=== PATIENT | female | born 1955 | race African-American/Black ===

== ENCOUNTER 2017-03-18 15:10 | Inpatient (IN) | payer MEDICARE, MEDICAID ==
[2017-03-18 16:21] LABS: Prothrombin Time 12.8 SEC (12.0-14.7)
[2017-03-18 16:23] LABS: Hemoglobin 13.9 g/dL (12.0-16.0); Mean Corpuscular HGB CONC 34.4 g/dL (32.0-36.0); Mean Corpuscular Hemoglobin 29.9 pg (27.0-31.0); Mean Platelet Volume 7.6 fL (7.4-10.4); PTT 18.7 SEC (22.9-36.1); Platelet Count 251 thou/uL (130-400); Red Blood Cell (RBC) Count 4.63 mill/uL (4.20-5.40); White Blood Cell (WBC) Count 22.7 thou/uL (4.8-10.8)
[2017-03-18 16:40] LABS: ALT (SGPT) 16 U/L (8-55); AST (SGOT) 11 U/L (5-34); Albumin 3.7 g/dL (3.4-4.8); Alkaline Phosphatase 97 U/L (40-150); Anion Gap 15 mmol/L (10-20); BUN (Urea Nitrogen) 28 mg/dL (9.8-20.1); Bilirubin, Total 0.4 mg/dL (0.2-1.2); CK (CPK) 92 U/L (29-168); Calc. Creatinine Clearance 0 mL/min (70-130); Calcium 9.6 mg/dL (7.8-10.44); Carbon Dioxide 22 mmol/L (23-31); Chloride 107 mmol/L (98-107); Estimated GFR-MDRD 31; Globulin 3.2 g/dL (2.4-3.5); Glucose 113 mg/dL (80-115); Lipase 26 U/L (8-78); Lymphocytes 48 % (21-51); MDiff Complete? YES; Monocytes 5 % (0-10); Neutrophil 45 % (42-75); PLT Morphology Comment Appears Adequate; Potassium 4.1 mmol/L (3.5-5.1); Protein, Total 6.9 g/dL (6.0-8.3); Reactive Lymphocytes 2 % (0-10); Sodium 140 mmol/L (136-145)
--- NOTE | 2017-03-18 16:42 | RAD ---
PORTABLE UPRIGHT FRONTAL CHEST RADIOGRAPH 03/18/17 COMPARISON: 05/15/16 HISTORY: High blood pressure. FINDINGS: There is mild increased density in the perihilar region suggesting volume loss or mild vascular promi nence. Shallow inspiration limits detailed assessment in these regions. There is no pneumothorax or p leural fluid and there is no focal consolidation or alveolar edema. IMPRESSION: No acute findings. POS: [facility]
[2017-03-18 16:43] LABS: Troponin I Less than 0.010 ng/mL (< 0.028)
--- NOTE | 2017-03-18 16:45 | CT ---
HEAD CT 03/18/17 COMPARISON: None. HISTORY: Sudden onset of left hand weakness, CVA symptoms, altered mental status, hypertension. TECHNIQUE: Serial axial CT imaging obtained at 5 mm intervals from vertex through skull base without contrast. FINDINGS: There is evidence of prior craniotomy near the vertex posteriorly on the right. The imaged paranasal sinuses and mastoid air cells are well aerated. There is no displaced calvarial fracture, intracranial hemorrhage, midline shift or mass effect. There is a focal area of periventricular and deep white matter hypodensity in the frontal region on t he right. The adjacent frontal horn of the right lateral ventricle is slightly enlarged suggesting pr ior ischemia and/or small vessel disease. If there is clinical concern for an acute infarction, brain MRI is advised. IMPRESSION: Area of hypodensity in the periventricular and deep white matter of the right frontal region as detai led above. No intracranial hemorrhage noted. POS: [facility]
[2017-03-18 18:33] LABS: Bilirubin Negative (Negative); Blood, Urine Negative (Negative); Clarity CLEAR (Clear); Glucose, Urine (Dipstick) Negative (Negative); Leukocyte Negative (Negative); Nitrite Negative (Negative); Protein, Urine (Dipstick) Negative (Neg-Trace); Specific Gravity, Urine 1.015 (1.002-1.036); Urobilinogen 0.2 mg/dL (0.2-1.0)
[2017-03-18] MEDS ORDERED: hydrALAZINE 20 MG/ML VIAL SLOW IVP PRN (19:35)
[2017-03-18] MEDS ORDERED: Labetalol HCl 100 MG/20 ML VIAL SLOW IVP PRN (19:35)
[2017-03-18] MEDS ORDERED: Senokot 8.6 MG TAB PO PRN (19:35)
[2017-03-18] MEDS ORDERED: Guaifenesin DM 100-10/5 ML UDCUP PO PRN (19:35)
[2017-03-18 20:58] VITALS: BMI 31.6
[2017-03-18 21:14] LABS: Band 4 % (5-11); Eosinophils 1 % (0-10); Lymphocytes 65 % (21-51); MDiff Complete? YES; Mean Corpuscular HGB CONC 33.9 g/dL (32.0-36.0); Mean Corpuscular Hemoglobin 29.4 pg (27.0-31.0); Mean Corpuscular Volume 86.8 fl (81.0-99.0); Mean Platelet Volume 7.4 fL (7.4-10.4); Monocytes 2 % (0-10); Neutrophil 28 % (42-75); PLT Morphology Comment Appears Adequate; Platelet Count 229 thou/uL (130-400); RBC Distribution Width 13.7 % (11.5-14.5); RBC Morphology Normal; White Blood Cell (WBC) Count 20.3 thou/uL (4.8-10.8)
[2017-03-18] MEDS: cloNIDine 0.1 MG TAB PO SCH (21:27)
[2017-03-18] MEDS: Carvedilol 25 MG TAB PO SCH (21:27)
[2017-03-18] MEDS: Sodium Chloride 0.9% 1,000 ML IV SCH (21:28)
[2017-03-18] MEDS: Atorvastatin Calcium 40 MG TAB PO SCH (21:28)
--- NOTE | 2017-03-18 23:05 | HP ---
REASON FOR ADMISSION: TIA, hypertensive urgency, chronic leukocytosis. HISTORY OF PRESENT ILLNESS: The patient gives history of watching TV at her home when she developed left upper extremity numbness. This progressed to her left lower extremity as well. Her boyfriend told her that her face was twisted to the left. She also had a headache at the same time. The patient managed to shuffle across to the restroom to see her face. Finally, they called EMS and patient was brought here. By the time EMS came to see her, all her facial symptoms have resolved. She has some dry cough and also increased frequency to a weak bladder which is chronic. She also mentions that her white count has been high from last 6 months and her primary care physician, Dr. Ike Bañuelos is aware. She has not seen an oncologist for the same, but she sees Dr. Bhardwaj at [facility] who is her oncologist for her breast cancer. No history of fever. No complaints of any ulcers. No flu-like illness. PAST MEDICAL AND SURGICAL HISTORY: Hypertension, history of right breast cancer for which she has had a lumpectomy and radiation, no chemotherapy was given. [facility] She had this 4 years back. She has had meningioma removed from her right side of her brain which is not malignant per patient. Hysterectomy, right kidney stent placed, history of chronic kidney disease, chronic leukocytosis from last 6 months, prior stress test done 1 year back at [facility] was negative. CURRENT MEDICATIONS: The patient is on clonidine, spironolactone, carvedilol. Please note patient does not recall all her medications. She takes a lot of medications and goes to [facility] pharmacy in [place]. We will try to obtain the same from her pharmacy. ALLERGIES: SULFA. She is intolerant to NAPROSYN and ULTRAM which causes her stomach upset. PERSONAL HISTORY: Does not abuse alcohol or drugs. No history of smoking. FAMILY HISTORY: The patient was adopted when she was very young. Her biological mom had history of kidney issues and had cervical cancer as well. She does not know anything about her biological father. The patient has 6 children, 5 girls and 1 boy and she also has 8 grandkids. Power of admitted attorneys is Mr. Danielson, that is her grandson. CODE STATUS: FULL. REVIEW OF SYSTEMS: The following complete review of systems was negative, unless otherwise mentioned in the HPI or below: Constitutional: Weight loss or gain, ability to conduct usual activities. Skin: Rash, itching. Eyes: Double vision, pain. ENT/Mouth: Nose bleeding, neck stiffness, pain, tenderness. Cardiovascular: Palpitations, dyspnea on exertion, orthopnea. Respiratory: Shortness of breath, wheezing, cough, hemoptysis, fever or night sweats. Gastrointestinal: Poor appetite, abdominal pain, heartburn, nausea, vomiting, constipation, or diarrhea. Genitourinary: Urgency, frequency, dysuria, nocturia. Musculoskeletal: Pain, swelling. Neurologic/Psychiatric: Anxiety, depression. Allergy/Immunologic: Skin rash, bleeding tendency. PHYSICAL EXAMINATION: GENERAL: The patient is a 62-year-old female who is currently not in any acute distress. VITAL SIGNS: Blood pressure 170/82. When EMS arrived, the patient had systolic blood pressures more than 210, pulse 74 per minute, respiratory rate 20 per minute, temperature 98.7 degrees Fahrenheit, saturating 96% on room air. NECK: Supple, no elevated JVD. HEENT: Extraocular muscles intact. Pupils reacting to light. Oral cavity mucous membranes are moist. No exudates or congestion. CARDIOVASCULAR: S1, S2 heard. Regular rhythm. RESPIRATORY: Air entry 1+ bilateral. No rales or rhonchi. ABDOMEN: Soft, bowel sounds heard. No tenderness, rigidity or guarding. EXTREMITIES: No peripheral edema or calf tenderness. VASCULAR SYSTEM: Peripheral pulses 1+ bilateral. No ischemic ulcerations or gangrene. CENTRAL NERVOUS SYSTEM: No gross focal deficits seen. Patient moves all 4 extremities. PSYCHIATRIC: The patient's mood is euthymic. No hallucinations or delusions. LABORATORY AND X-RAY FINDINGS: White count of 22, H&H 13 and 40, MCV is 87. Platelet count 251 with 45% neutrophils, has 2% reactive lymphocytes. PT/INR, PTT are 12, 1.0, and 18. Serum bicarbonate is 22, BUN 28, creatinine 1.9, serum glucose 113, calcium 9.6. Lactic acid is 2.0. Liver enzymes within normal limits. First set of cardiac enzymes are negative. BNP is 75, albumin is 3.7. Lipase is 26. UA is negative. Influenza A and B antigens are negative. Chest x-ray done shows no acute cardiopulmonary findings. CT brain done shows hypodensity in the periventricular and deep white matter of the right frontal region. There is no intracranial hemorrhage, prior craniotomy changes were seen. CLINICAL IMPRESSION AND PLAN: The patient will be admitted to Stroke Unit for transient ischemic attack with left-sided paraesthesias, which has completely resolved at present. The patient has leukocytosis with white count of nearly 22 ,000. Patient states she has had this from last 6 months or so and has not had any further workup on this. First, we will repeat a CBC and also ask for peripheral smear review by pathologist. We will obtain LDH, flow cytometry and gunderson cultures. Patient is currently not having any signs of infection and will not be given any antibiotics for the same. We will obtain MRI brain for better delineation of her brain structure with prior history of craniotomy for meningioma, echo with 2D Doppler for LV function due to hypertensive urgency on arrival. Most of her symptoms likely are due to hypertensive urgency with headache and left-sided tingling, numbness that has resolved now. She will be gently hydrated with normal saline at 80 mL per hour for a total of 1 liter. We will continue her on Coreg, Lipitor, aspirin, Norvasc for now. The patient goes to [facility] in [place] and will try to obtain accurate med list from there. The patient has chronic kidney disease, likely stage 3-4 and follows up with a evp head of [facility] [employer] [facility] at [facility]. [facility]
[2017-03-19] MEDS: Acetaminophen 325 MG TAB PO PRN ×2 (05:38→09:58)
[2017-03-19 05:43] LABS: Anion Gap 12 mmol/L (10-20); BUN (Urea Nitrogen) 24 mg/dL (9.8-20.1); Calc. Creatinine Clearance 53 mL/min (70-130); Calcium 9.5 mg/dL (7.8-10.44); Carbon Dioxide 21 mmol/L (23-31); Cardiac Risk 5.6 (Less than 4.5); Chloride 110 mmol/L (98-107); Cholesterol 168 mg/dl (< 200 Desired); Estimated GFR-MDRD 35; Glucose 113 mg/dL (80-115); HDL Cholesterol 30 mg/dL (>60 Neg Risk); LDL Cholesterol, Calculated 110 mg/dL; Potassium 4.4 mmol/L (3.5-5.1); Sodium 139 mmol/L (136-145); Triglycerides 138 mg/dL (Less than 150)
--- NOTE | 2017-03-19 06:15 | PDOC.EVN ---
Event Note - Event Note Event Note: Attended Code [place] for L weakness. Power 4+/[address] LUE [address] LLE. Revi[address] scan and report. Pt's symptoms resolved.
[2017-03-19 06:20] LABS: Eosinophils 1 % (0-10); Hemoglobin 13.3 g/dL (12.0-16.0); Lymphocytes 62 % (21-51); MDiff Complete? YES; Mean Corpuscular HGB CONC 34.4 g/dL (32.0-36.0); Mean Corpuscular Hemoglobin 29.7 pg (27.0-31.0); Mean Corpuscular Volume 86.3 fl (81.0-99.0); Monocytes 3 % (0-10); Neutrophil 34 % (42-75); Platelet Count 228 thou/uL (130-400); RBC Distribution Width 13.9 % (11.5-14.5); Red Blood Cell (RBC) Count 4.48 mill/uL (4.20-5.40); White Blood Cell (WBC) Count 16.1 thou/uL (4.8-10.8)
--- NOTE | 2017-03-19 08:16 | ULT ---
BILATERAL CAROTID DUPLEX ULTRASOUND: HISTORY: TIA, headache, left-sided weakness. TECHNIQUE: Lucero scale ultrasound with color flow and spectral Doppler imaging of the extracranial carotid artery systems was performed bilaterally. FINDINGS: There is plaque formation on either side. The peak systolic velocity in the right ICA measures 65 cm/s with an end-diastolic velocity of 20 cm/ s and a systolic ratio of 0.76. The peak systolic velocity in the left ICA measures 80 cm/s with an end-diastolic velocity of 30 cm/ s and a systolic ratio of 0.66. Flow in both vertebral arteries remains antegrade. IMPRESSION: No evidence of hemodynamically significant stenosis. POS: [facility]
--- NOTE | 2017-03-19 08:29 | CT ---
PRELIMINARY REPORT/[facility]/EMERGENCY AFTER HOURS PROCEDURE: EXAM: CT Head Without Intravenous Contrast CLINICAL HISTORY: 62 years old, female; Signs and symptoms; Altered mental status/memory loss; Confusion or disorientat ion; Patient HX: Status changes TECHNIQUE: Axial computed tomography images of the head/brain without intravenous contrast. COMPARISON: No relevant prior studies available. FINDINGS: Brain: There is no evidence for acute stroke or bleed. There are scattered foci of decreased attenuation in the periventricular and subcortical white matter, nonspecific, but most consistent with chronic small vessel ischemic changes in patient of this age. There is focus of chronic encephalomalacia, deep rig ht frontal periventricular white matter. Ventricles / cisterns / extra-axial spaces: There is no hydrocephalus, midline shift, or acute extra-axial fluid collection. There is no sulcal e ffacement. Sinuses: No findings of acute sinusitis or suspicious sinus mass. Bone: No acute fracture or displacement. High left parietal craniotomy defect. Impression: Chronic changes without evidence for acute, intracranial pathology. Thank you for allowing us to participate in the care of your patient. Dictated and Authenticated by: Nora Hogan MD 03/19/2017 12:45 AM Central Time ([place] & [place]) CT HEAD NONCONTRAST: EMERGENT AFTER HOURS STUDY Date: 03-19-17 History: MIH changes. Patient initially admitted for sudden onset of left hand weakness and stumbling on 03-18-17. Comparison: 03-18-17 IMPRESSION: 1. Stable focal area of decreased attenuation in the deep white matter of the right frontal lobe, and again the frontal horn right lateral ventricle is enlarged, probably on the basis of ex vacuo dilati on with hypodense area likely related to remote an area of white matter ischemia. 2. Scattered areas of decreased attenuation in the periventricular white matter suggesting chronic sm all vessel ischemic changes. 3. Findings likely related to tiny remote lacunar infarction in the right basal ganglia. 4. No intraparenchymal or extraaxial hemorrhage is identified. 5. Left parietal craniotomy defect. 6. Findings in agreement with the preliminary report by [facility]. If there is clinical concern for acute infarction, MRI of the brain is recommended for further evaluation. POS: [facility]
[2017-03-19] MEDS: cloNIDine 0.1 MG TAB PO SCH (09:57)
[2017-03-19] MEDS: Enoxaparin Sodium 40 MG/0.4 ML SYRINGE SC SCH (09:57)
[2017-03-19] MEDS: Carvedilol 25 MG TAB PO SCH ×2 (09:58→20:53)
[2017-03-19] MEDS: Amlodipine 5 MG TAB PO SCH (09:58)
[2017-03-19] MEDS: Aspirin 325 mg Enteric Coated Tablet PO SCH (09:58)
[2017-03-19] MEDS ORDERED: hydrALAZINE 20 MG/ML VIAL SLOW IVP PRN (11:25)
[2017-03-19] MEDS ORDERED: cloNIDine 0.1 MG TAB PO SCH (11:30)
[2017-03-19] MEDS ORDERED: Spironolactone 100 MG TAB PO SCH (11:30)
--- NOTE | 2017-03-19 12:29 | PDOC.PN ---
- Subjective Encounter Start Date: 03/19/17 Encounter Start Time: 11:35 Pt seen and examined, chart reviewed in its entirety. This is my first visit with this patient. Pt still with uncontrolled HTN, 180-200systolic. waxing and waning neuro deificits, MRI done but not resulted. Shelia walden reviewed. Pt working with ST at present, obvious problems present, no localizing No F/C, no N/V/D/C, no CP or SOB, no headache, no GI bleeding 10 point ROS performed and neg for all systems except as above - Objective Resuscitation Status: Resuscitation Status FULL:Full Resuscitation MAR Reviewed: Yes Vital Signs & Weight: Vital Signs (12 hours) Temp Pulse Pulse Pulse Resp BP BP 03/19/17 12:10 196/93 H 03/19/17 12:00 98.3 F 65 20 03/19/17 09:58 70 189/91 H 03/19/17 09:57 189/91 H 03/19/17 09:05 91 83 190/96 H 03/19/17 07:49 98.7 F 70 20 03/19/17 07:28 70 66 185/89 H 03/19/17 05:02 97.9 F 73 16 03/19/17 00:41 97.6 F 68 18 BP BP BP Pulse Ox 03/19/17 12:10 03/19/17 12:00 196/93 H 98 03/19/17 09:58 03/19/17 09:57 03/19/17 09:05 189/91 H 03/19/17 07:49 185/89 H 95 03/19/17 07:28 200/95 H 03/19/17 05:02 203/95 H 98 03/19/17 00:41 181/80 H 97 Weight Weight 224 lb 4.8 oz I&O: 03/18/17 03/19/17 03/20/17 06:59 06:59 06:59 Intake Total 946 120 Balance 946 120 Result Diagrams: 03/19/17 04:58 03/19/17 04:58 Additional Labs: Accuchecks 03/19/17 00:18 POC Glucose 120 H Radiology Reviewed by me: Yes EKG Reviewed by me: Yes Phys Exam - Physical Examination Constitutional: NAD HEENT: PERRLA, moist MMs, sclera anicteric, oral pharynx no lesions Neck: no nodes, no JVD, supple, full ROM Respiratory: no wheezing, no rales, no rhonchi, clear to auscultation bilateral Cardiovascular: RRR, no rub Gastrointestinal: soft, non-tender, no distention, positive bowel sounds Musculoskeletal: no edema, pulses present Neurological: non-focal, moves all 4 limbs 3-4/5 strength, dusarthria present, tounge, uvula midline Lymphatic: no nodes Psychiatric: normal affect, A&O x 3 Skin: no rash, normal turgor, cap refill <2 seconds Dx/Plan (1) Hypertensive urgency Code(s): I16.0 - HYPERTENSIVE URGENCY Status: Acute Comment: BP still elevated, restart aldactone, increase clonidine, may need to use po hydralazine (2) HTN (hypertension) Code(s): I10 - ESSENTIAL (PRIMARY) HYPERTENSION Status: Acute Qualifiers: Hypertension type: essential hypertension Qualified Code(s): I10 - Essential (primary) hypertension (3) Hypertensive encephalopathy Code(s): I67.4 - HYPERTENSIVE ENCEPHALOPATHY Status: Acute Comment: symptoms coming and going, CT with possible infarct, will review MRI. Neuro consulted already. (4) CKD (chronic kidney disease) stage 3, GFR 30-59 ml/min Code(s): N18.3 - CHRONIC KIDNEY DISEASE, STAGE 3 (MODERATE) Status: Chronic (5) Lymphocytosis Code(s): D72.820 - LYMPHOCYTOSIS (SYMPTOMATIC) Status: Chronic - Plan cont current plan of care, PT/OT, speech therapy * . MRI without acute infarct, small petechial basal ganglia hemorrhages suggesting prior hemorrhage. CCM, control BP
--- NOTE | 2017-03-19 12:33 | MRI ---
NONCONTRAST MRI BRAIN: Date: 03-19-17 History: Slurred speech. Sudden onset of left hand weakness and stumbling on 03-18-17. Comparison: CT head on 03-19-17, earlier today. FINDINGS: There are punctate and patchy areas of increased FLAIR and T2 weighted signal intensity in the perive ntricular white matter. A large more confluent area in the right anterior frontal lobe white matter c orresponding to findings on the CT exam is identified. While findings are overall nonspecific, they a re likely reflective of chronic small vessel ischemic changes. There is increased FLAIR and T2 weight ed signal intensity seen in the mannie bilaterally, also likely chronic small vessel ischemic changes. There is no evidence of an acute infarction. Septum pellucidum and third ventricle are in the midline. Ventricular system is normal in size, shape and position aside from mild ex vacuo dilation of the body of the right lateral ventricle just to th e area of white matter infarction. Appropriate flow voids are demonstrated at the base of the brain. There is minimal mucosal thickening of the ethmoid air cells bilaterally as well as involving the mas toid air cells bilaterally as well as involving a few left sided ethmoidal air cells. The orbits and skull base otherwise have a normal MRI appearance. There is a craniotomy defect involving the posterior left parietal bone. IMPRESSION: 1. No acute intracranial abnormalities demonstrated. 2. Moderate chronic small vessel ischemic changes. 3. Findings suggesting prior hemorrhage within each basil ganglia. POS: [facility]
[2017-03-19] MEDS: Sodium Chloride 0.9% 1,000 ML IV SCH (13:27)
--- NOTE | 2017-03-19 13:29 | CON ---
DATE OF CONSULTATION: 03/19/2017 CONSULTING PHYSICIAN: Hospitalist Service. IMPRESSION: 1. Small vessel stroke with mild left-sided weakness. 2. Hypertension. 3. Cancer. PLAN: 1. Start aspirin and a statin. 2. The patient can be discharged home. 3. Outpatient followup. Ms. Reyes is a 62-year-old black female with a past history of hypertension and cancer. She presented with left-sided weakness and some slurred speech. Initial CT scan showed some chronic small vessel ischemic changes. Carotid Doppler study did not show any stenosis. MRI shows moderate amount of chr onic small vessel ischemic changes in the periventricular region. Her symptoms have improved by her assessment. Laboratory studies were only notable for an elevated white count. She denies any past h istory of similar symptoms. PAST MEDICAL HISTORY: As listed above. ALLERGIES: SULFA, NAPROSYN, TRAMADOL. SOCIAL HISTORY: No tobacco or alcohol use. FAMILY HISTORY: Noncontributory. REVIEW OF SYSTEMS: No complaint of headache, nausea, vomiting, vertigo, double vision, blurred visio n or difficulty walking. PHYSICAL EXAMINATION: GENERAL: She is a well-nourished, middle-aged woman in no distress. VITAL SIGNS: Blood pressure 196/93, pulse 65, respirations 20, temperature 98.3. HEENT: Pupils equal and reactive. Conjunctivae clear. Oropharynx clear. NECK: Supple. EXTREMITIES: No cyanosis, clubbing or edema. NEUROLOGIC: She is alert and cooperative. Her speech is fluent with some mild dysarthria. Cranial nerve exam shows a left facial droop. Motor exam shows good strength bilaterally with only minimal d ecrease in left hand manager law compared to the right. [id number] and rapid alternating movements were equal. She can walk independently. Sensation in extremities was equal. LABORATORY STUDIES: Reviewed. SUMMARY: This is a middle-aged woman with a history of hypertension, who presents with mild left-derrick ed weakness consistent with a small vessel stroke. She has been started on aspirin and a statin. He r symptoms are improving. I think she can be discharged home and follow up in the office.
[2017-03-19] MEDS: Spironolactone 25 MG TAB PO SCH (20:54)
[2017-03-19] MEDS: cloNIDine 0.2 MG TAB PO SCH (20:54)
[2017-03-19] MEDS: Atorvastatin Calcium 40 MG TAB PO SCH (20:54)
[2017-03-20] MEDS ORDERED: Ondansetron HCl/PF 4 MG/2 ML Vial IVP SCH (01:30)
[2017-03-20 06:48] LABS: Anion Gap 11 mmol/L (10-20); BUN (Urea Nitrogen) 22 mg/dL (9.8-20.1); Calc. Creatinine Clearance 52 mL/min (70-130); Calcium 9.9 mg/dL (7.8-10.44); Carbon Dioxide 24 mmol/L (23-31); Chloride 107 mmol/L (98-107); Estimated GFR-MDRD 36; Glucose 117 mg/dL (80-115); Magnesium 2.2 mg/dL (1.6-2.6); Potassium 4.3 mmol/L (3.5-5.1); Sodium 138 mmol/L (136-145)
[2017-03-20 08:22] LABS: Band 3 % (5-11); Eosinophils 2 % (0-10); Hemoglobin 12.7 g/dL (12.0-16.0); Lymphocytes 60 % (21-51); MDiff Complete? YES; Mean Corpuscular HGB CONC 33.8 g/dL (32.0-36.0); Mean Corpuscular Hemoglobin 29.1 pg (27.0-31.0); Mean Corpuscular Volume 86.1 fl (81.0-99.0); Mean Platelet Volume 8.1 fL (7.4-10.4); Monocytes 3 % (0-10); Neutrophil 32 % (42-75); Platelet Count 220 thou/uL (130-400); RBC Distribution Width 14.1 % (11.5-14.5); Red Blood Cell (RBC) Count 4.37 mill/uL (4.20-5.40); White Blood Cell (WBC) Count 15.6 thou/uL (4.8-10.8)
[2017-03-20] MEDS: Enoxaparin Sodium 40 MG/0.4 ML SYRINGE SC SCH (08:35)
[2017-03-20] MEDS: Amlodipine 5 MG TAB PO SCH (08:36)
[2017-03-20] MEDS: cloNIDine 0.2 MG TAB PO SCH ×2 (08:36→21:18)
[2017-03-20] MEDS: Spironolactone 25 MG TAB PO SCH ×2 (08:36→21:16)
[2017-03-20] MEDS: Aspirin 325 mg Enteric Coated Tablet PO SCH (08:37)
[2017-03-20] MEDS: Carvedilol 25 MG TAB PO SCH ×2 (08:37→21:18)
[2017-03-20] MEDS ORDERED: hydrALAZINE 25 MG TAB PO SCH ×5 (10:00→21:00)
[2017-03-20] MEDS ORDERED: Amlodipine 10 MG TAB PO SCH (10:00)
[2017-03-20] MEDS ORDERED: Amlodipine 5 MG TAB PO SCH (10:30)
--- NOTE | 2017-03-20 13:43 | PDOC.PN ---
- Subjective Encounter Start Date: 03/20/17 Encounter Start Time: 09:50 Pt seems more dysarthric today, no F/C, no N/V/D/C, no CP, no SOB. BP to 200 overnight, better after AM meds, but coming back up this afternoon. Hydralazine po added. Nursing able to nail down home meds, and these have been reviewed. ST felt pt higher aspiration risk today, downgraded diet to pureed 10 point ROS performed and neg for all systems except as per HPI - Objective Resuscitation Status: Resuscitation Status FULL:Full Resuscitation MAR Reviewed: Yes Vital Signs & Weight: Vital Signs (12 hours) Temp Pulse Resp BP BP BP Pulse Ox 03/20/17 11:48 98.2 F 61 20 158/83 H 98 03/20/17 10:25 131/70 03/20/17 08:36 65 209/116 H 03/20/17 08:00 98.7 F 65 20 03/20/17 07:48 98.7 F 61 20 209/116 H 98 03/20/17 05:42 182/97 H 03/20/17 04:23 98.7 F 67 16 202/86 H 98 Weight Weight 222 lb 3.2 oz I&O: 03/19/17 03/20/17 03/21/17 06:59 06:59 06:59 Intake Total 946 1764 Balance 946 1764 Result Diagrams: 03/20/17 06:02 03/20/17 06:02 Radiology Reviewed by me: Yes EKG Reviewed by me: Yes Phys Exam - Physical Examination Constitutional: NAD HEENT: PERRLA, moist MMs, sclera anicteric, oral pharynx no lesions Neck: no nodes, no JVD, supple, full ROM Respiratory: no wheezing, no rales, no rhonchi, clear to auscultation bilateral Cardiovascular: RRR, no significant murmur, no rub Gastrointestinal: soft, non-tender, no distention, positive bowel sounds Musculoskeletal: no edema right hand weak, dysarthric Lymphatic: no nodes Psychiatric: normal affect, A&O x 3 Deviation from normal: look depressed Skin: no rash, normal turgor, cap refill <2 seconds Dx/Plan (1) 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 adjustments made (2) Hypertensive urgency Code(s): I16.0 - HYPERTENSIVE URGENCY Status: Acute Comment: BP still elevated, restarted aldactone, increased clonidine. home meds are clindine 0.2 BID and aldactone 50 BID. Coreg starte don discharge here on 05/2016, but pt never took. Amlodipine either. On amlodipine 5 qd, Coreg 25 BID, Clonidine 0.2 BID, Aldactone 50 BID, will start schedule po hydralazine, and change PRN rules (3) HTN (hypertension) Code(s): I10 - ESSENTIAL (PRIMARY) HYPERTENSION Status: Acute Qualifiers: Hypertension type: essential hypertension Qualified Code(s): I10 - Essential (primary) hypertension (4) Hypertensive encephalopathy Code(s): I67.4 - HYPERTENSIVE ENCEPHALOPATHY Status: Acute Comment: symptoms coming and going, CT with possible infarct, will review MRI. Neuro consulted already. (5) CKD (chronic kidney disease) stage 3, GFR 30-59 ml/min Code(s): N18.3 - CHRONIC KIDNEY DISEASE, STAGE 3 (MODERATE) Status: Chronic (6) Lymphocytosis Code(s): D72.820 - LYMPHOCYTOSIS (SYMPTOMATIC) Status: Chronic - Plan * .
[2017-03-20] MEDS ORDERED: hydrALAZINE 20 MG/ML VIAL SLOW IVP PRN (13:49)
[2017-03-20] MEDS: Atorvastatin Calcium 40 MG TAB PO SCH (21:15)
[2017-03-21 06:47] LABS: Anion Gap 12 mmol/L (10-20); BUN (Urea Nitrogen) 26 mg/dL (9.8-20.1); Calc. Creatinine Clearance 48 mL/min (70-130); Calcium 10.1 mg/dL (7.8-10.44); Carbon Dioxide 27 mmol/L (23-31); Chloride 105 mmol/L (98-107); Estimated GFR-MDRD 32; Glucose 104 mg/dL (80-115); Magnesium 2.1 mg/dL (1.6-2.6); Sodium 140 mmol/L (136-145)
[2017-03-21 06:58] LABS: Eosinophils 2 % (0-10); Hemoglobin 12.7 g/dL (12.0-16.0); Lymphocytes 77 % (21-51); MDiff Complete? YES; Mean Corpuscular HGB CONC 33.8 g/dL (32.0-36.0); Mean Corpuscular Hemoglobin 29.2 pg (27.0-31.0); Mean Corpuscular Volume 86.5 fl (81.0-99.0); Mean Platelet Volume 7.8 fL (7.4-10.4); Monocytes 1 % (0-10); Neutrophil 20 % (42-75); Platelet Count 215 thou/uL (130-400); Red Blood Cell (RBC) Count 4.34 mill/uL (4.20-5.40); White Blood Cell (WBC) Count 16.7 thou/uL (4.8-10.8)
[2017-03-21] MEDS: Carvedilol 25 MG TAB PO SCH (08:58)
[2017-03-21] MEDS: Aspirin 325 mg Enteric Coated Tablet PO SCH (08:58)
[2017-03-21] MEDS: cloNIDine 0.2 MG TAB PO SCH (08:58)
[2017-03-21] MEDS: Enoxaparin Sodium 40 MG/0.4 ML SYRINGE SC SCH (08:59)
[2017-03-21] MEDS ORDERED: Amlodipine 10 MG TAB PO SCH (09:00)
[2017-03-21] MEDS: Spironolactone 25 MG TAB PO SCH (09:00)
[2017-03-21] MEDS ORDERED: hydrALAZINE 25 MG TAB PO SCH (09:00)
[2017-03-21 12:00] VITALS: BP 119/65; TEMP 97.7
--- NOTE | 2017-04-02 15:28 | DIS ---
PRIMARY CARE PHYSICIAN: Dr. Ike Bañuelos at [facility]. DATE OF ADMISSION: 03/18/2017 DATE OF DISCHARGE: 03/21/2017 DISCHARGE DIAGNOSES: 1. Basal artery ischemic cerebrovascular accident. 2. Hypertensive urgency. 3. Essential hypertension. 4. Hypertensive encephalopathy. 5. Chronic kidney disease stage 3. 6. Lymphocytosis. CONSULTATIONS: Neurology, Dr. Richard Mitchell. PROCEDURES: Echocardiogram on 03/19/2017 showed EF of 55-60%, mildly dilated LA, severe concentric L VH, diastolic dysfunction and mild to moderate TR. HISTORY OF PRESENT ILLNESS: Ms. Reyes is a 62-year-old female with a history of hyp ertension, breast cancer status post lumpectomy and radiation, meningioma resection, hysterectomy, an d right renal stent placement with resulting right chronic kidney disease who presents to the emergen cy department for increased blood pressure and left upper extremity numbness. Progressing to left lower extremity and the boyfriend said that her face was kind of twisted to the l eft. She called EMS and was brought to the emergency department. By the time that she arrived all o f her symptoms resolved. She was noted to be hypertensive on arrival. She was given antihypertensiv es and we were called for admission. HOSPITAL COURSE: The patient was seen and examined by Dr. Whatley. She was admitted to the [facility] for TIA versus stroke. White count was elevated with leukocytosis count of 22,000, which was a known condition for the patient. There was not any further workup. A peripheral smear was obtain ed, MRI of the brain was ordered, a 2D echocardiogram was ordered and blood pressure medicines with C oreg, Norvasc, and p.r.n. hydralazine were ordered. Overnight 03/18/2017 to 03/19/2017, the patient did have her MRI done that showed moderate chronic sm all vessel ischemic changes and a prior hemorrhage in each basal ganglia, but no acute intracranial a bnormalities. Neurology was consulted and the patient was seen by Dr. Mitchell who felt like she had basal artery stroke and recommended antiplatelet agents with aspirin. He recommended she be discharg ed home when her blood pressure was under control. By 03/20/2017, blood pressure was being worked on. Blood pressure was to 200 systolic overnight, but better with her a.m. medications and coming back in the afternoon. Hydralazine was ordered and her discharge was held until her blood pressure was better controlled. By 03/21/2017 her blood pressure was markedly improved. Systolic blood pressure post medications was 119/65 and she was stable for sloan sharp with outpatient followup. Peripheral smear was currently pending on discharge. PHYSICAL EXAMINATION: The patient was seen and examined on the day of discharge. Discharge plan and disposition was discussed with the patient face to face at the bedside. DISCHARGE MEDICATIONS: 1. Amlodipine 10 mg p.o. daily. 2. Aspirin 325 mg p.o. daily. 3. Atorvastatin 40 mg p.o. at bedtime. 4. Carvedilol 25 mg p.o. b.i.d. 5. Hydralazine 50 mg p.o. t.i.d. FOLLOWUP: 1. Follow up appointment with Dr. Mitchell in 2 weeks. 2. Primary care physician within a week. DISCHARGE ACTIVITY: As tolerated. DISCHARGE DIET: Heart healthy recommended. DISCHARGE CONDITION: Stable. DISPOSITION: She will be discharged home via private vehicle for outpatient occupational therapy and speech therapy.
--- NOTE | 2017-04-10 15:15 | EKG ---
Test Reason : Blood Pressure : / mmHG Vent. Rate : 070 BPM Atrial Rate : 070 BPM P-R Int : 154 ms QRS Dur : 070 ms QT Int : 394 ms P-R-T Axes : 051 -11 089 degrees QTc Int : 425 ms Normal sinus rhythm Moderate voltage criteria for LVH, may be normal variant Nonspecific T wave abnormality Abnormal ECG Confirmed by JEANNIE MOONEY, LAMAR ([id number]), industrial editor SKY LANGSTON ([id number]) on 04/10/2017 3:14:19 PM Referred By: Confirmed By:LAMAR DENNIS MD
== END 2017-03-21 14:22 | disposition home or self-care (01) | DRG 65 ==
LOC: ERS 15:10 → 2SE 17:23
PROVIDERS: ADMIT Internal Medicine; ATTEND Internal Medicine
PROC: B030ZZZ Magnetic Resonance Imaging (MRI) of Brain (ICD-10-PCS; principal; 2017-03-19)
DX: I63.02 Cerebral infarction due to thrombosis of basilar artery (principal); I67.4 Hypertensive encephalopathy; N18.3 Chronic kidney disease, stage 3 (moderate); G81.94 Hemiplegia, unspecified affecting left nondominant side; I12.9 Hypertensive chronic kidney disease with stage 1 through stage 4 chronic kidney disease, or unspecified chronic kidney disease; I16.0 Hypertensive urgency; D72.820 Lymphocytosis (symptomatic); Z85.3 Personal history of malignant neoplasm of breast; Z86.69 Personal history of other diseases of the nervous system and sense organs; Z88.5 Allergy status to narcotic agent; Z88.0 Allergy status to penicillin; Z88.8 Allergy status to other drugs, medicaments and biological substances
CPT/HCPCS: 36415; 36416; 70450; 70551; 71045; 80048; 80053; 80061; 81003; 82550; 82553; 83605; 83615; 83690; 83735; 83880; 84484; 85025; 85060; 85610; 85730; 87040; 87086; 88184; 93005; 93306; 93880; 96374; A4216; G8978-GP-CJ; G8979-GP-CJ; G8980-GP-CJ; G8987-GO-CK; G8988-GO-CI; G8996-GN-CI; G8996-GN-CK; G8997-GN-CI; G8997-GN-CJ; J0360; J1650; J1956; J2405

== ENCOUNTER 2017-04-08 03:53 | Emergency (ER) | payer MEDICARE, MEDICAID ==
[2017-04-08 04:39] LABS: AST (SGOT) 22 U/L (5-34); Anion Gap 14 mmol/L (10-20); Bilirubin, Total 0.5 mg/dL (0.2-1.2); Calcium 9.5 mg/dL (7.8-10.44); Carbon Dioxide 22 mmol/L (23-31); Chloride 108 mmol/L (98-107); Protein, Total 7.4 g/dL (6.0-8.3); Sodium 140 mmol/L (136-145)
[2017-04-08 04:44] LABS: CKMB 0.9 ng/mL (0-6.6); Troponin I Less than 0.010 ng/mL (< 0.028)
[2017-04-08] MEDS ORDERED: Lidocaine 2% Viscous Solution 20 ML, Aluminum & Magnesium Hydroxide 30 ML, Donnatal Eli... SSW SCH ×3 (04:45)
[2017-04-08 04:48] LABS: ALT (SGPT) 29 U/L (8-55); Albumin 4.2 g/dL (3.4-4.8); Alkaline Phosphatase 120 U/L (40-150); BUN (Urea Nitrogen) 15 mg/dL (9.8-20.1); CK (CPK) 98 U/L (29-168); Calc. Creatinine Clearance 0 mL/min (70-130); Estimated GFR-MDRD 37; Globulin 3.2 g/dL (2.4-3.5); Glucose 118 mg/dL (80-115); Lipase 27 U/L (8-78)
[2017-04-08 04:55] LABS: Hemoglobin 13.5 g/dL (12.0-16.0); Lymphocytes 67 % (21-51); MDiff Complete? YES; Mean Corpuscular HGB CONC 33.5 g/dL (32.0-36.0); Mean Corpuscular Hemoglobin 28.9 pg (27.0-31.0); Mean Platelet Volume 8.1 fL (7.4-10.4); Monocytes 4 % (0-10); Neutrophil 28 % (42-75); PLT Morphology Comment Appears Adequate; Platelet Count 196 thou/uL (130-400); RBC Distribution Width 14.3 % (11.5-14.5); RBC Morphology Normal; Reactive Lymphocytes 1 % (0-10); Red Blood Cell (RBC) Count 4.69 mill/uL (4.20-5.40); White Blood Cell (WBC) Count 17.8 thou/uL (4.8-10.8)
--- NOTE | 2017-04-08 08:04 | RAD ---
AP VIEW CHEST: HISTORY: Chest pain and shortness of breath. DATE: 04/08/17. COMPARISON: Comparison is made to previous exam from 03/18/17. FINDINGS: AP view chest demonstrates some pulmonary vascular congestion. No evidence of effusion seen. No carlos dence of pneumonia or pneumothorax is seen. IMPRESSION: Pulmonary vascular congestion; otherwise, unremarkable AP view chest. POS: OFF
--- NOTE | 2017-04-10 18:14 | EKG ---
Test Reason : Blood Pressure : / mmHG Vent. Rate : 063 BPM Atrial Rate : 063 BPM P-R Int : 144 ms QRS Dur : 068 ms QT Int : 392 ms P-R-T Axes : 063 -06 033 degrees QTc Int : 401 ms Normal sinus rhythm T wave abnormality, consider lateral ischemia T wave inversion V4-V6 Abnormal ECG Confirmed by DHARMESH BLANCO D.O. ([id number]), acquisition editor SKY LANGSTON ([id number]) on 04/10/2017 6:13:48 PM Referred By: MD BLANCO Confirmed By:DHARMESH BLANCO D.O.
== END 2017-04-08 05:20 | disposition home or self-care (01) ==
LOC: ERS 03:53
DX: R07.2 Precordial pain (principal); I10 Essential (primary) hypertension; Z85.3 Personal history of malignant neoplasm of breast; F32.9 Major depressive disorder, single episode, unspecified; Z79.899 Other long term (current) drug therapy
CPT/HCPCS: 71045; 80053; 82550; 82553; 83690; 83880; 84484; 85025; 93005; 94760

== ENCOUNTER 2017-05-01 07:10 | Emergency (ER) | payer MEDICARE, MEDICAID ==
[2017-05-01] MEDS ORDERED: methylPREDNISolone Sod Succ/PF 125 MG/2 ML VIAL ONE (07:29)
--- NOTE | 2017-05-01 09:44 | ULT ---
DUPLEX VENOUS SONOGRAM BILATERAL LOWER EXTREMITIES: History Bilateral leg pain and edema. FINDINGS: Each common femoral vein and greater saphenous junction were evaluated along with each femoral, deep femoral, popliteal, and posterior tibial vein. There is good color and spectral Doppler flow, compre ssion, and augmentation. IMPRESSION: No sonographic evidence of deep vein thrombosis within either lower extremity. POS: [facility]
== END 2017-05-01 10:40 | disposition home or self-care (01) ==
LOC: ERS 07:10
DX: M79.605 Pain in left leg (principal); M79.604 Pain in right leg; I10 Essential (primary) hypertension; Z85.3 Personal history of malignant neoplasm of breast; Z92.3 Personal history of irradiation; F32.9 Major depressive disorder, single episode, unspecified
CPT/HCPCS: 93970; J2930

== ENCOUNTER 2017-06-25 08:47 | Emergency (ER) | payer MEDICARE, MEDICAID ==
--- NOTE | 2017-06-25 09:24 | RAD ---
FRONTAL VIEW CHEST: Comparison: 04-08-17 Indication: Chest pain. FINDINGS: There is enlargement of the cardiac silhouette which obscures portions of the left lung base. Mild in terstitial prominence of the perihilar region. Mediastinal silhouette is stable. There is osseous deg enerative change. IMPRESSION: Stable chest. There is enlargement of the cardiac silhouette which may reflect changes of CHF. Correl ate clinically. POS: [facility]
[2017-06-25 09:30] LABS: ALT (SGPT) 13 U/L (8-55); AST (SGOT) 11 U/L (5-34); Albumin 3.7 g/dL (3.4-4.8); Alkaline Phosphatase 111 U/L (40-150); Anion Gap 12 mmol/L (10-20); BUN (Urea Nitrogen) 22 mg/dL (9.8-20.1); Bilirubin, Total 0.8 mg/dL (0.2-1.2); CK (CPK) 109 U/L (29-168); Calc. Creatinine Clearance 0 mL/min (70-130); Calcium 9.1 mg/dL (7.8-10.44); Carbon Dioxide 26 mmol/L (23-31); Chloride 106 mmol/L (98-107); Estimated GFR-MDRD 38; Globulin 2.7 g/dL (2.4-3.5); Glucose 98 mg/dL (80-115); Potassium 3.6 mmol/L (3.5-5.1); Protein, Total 6.4 g/dL (6.0-8.3); Sodium 140 mmol/L (136-145)
[2017-06-25 09:34] LABS: CKMB 0.6 ng/mL (0-6.6); Troponin I Less than 0.010 ng/mL (< 0.028)
[2017-06-25 11:11] LABS: Hemoglobin 12.7 g/dL (12.0-16.0); Mean Corpuscular HGB CONC 34.7 g/dL (32.0-36.0); Mean Corpuscular Hemoglobin 29.5 pg (27.0-31.0); Mean Corpuscular Volume 84.8 fl (81.0-99.0); Mean Platelet Volume 8.7 fL (7.4-10.4); Platelet Count 191 thou/uL (130-400); Red Blood Cell (RBC) Count 4.32 mill/uL (4.20-5.40); White Blood Cell (WBC) Count 14.1 thou/uL (4.8-10.8)
[2017-06-25 11:35] LABS: Anisocytosis SLIGHT = 6-15 cells (100X) (0-5/hpf); Band 1 % (5-11); Eosinophils 1 % (0-10); Lymphocytes 81 % (21-51); MDiff Complete? YES; Monocytes 4 % (0-10); Neutrophil 13 % (42-75); PLT Morphology Comment Appears Adequate
== END 2017-06-25 11:34 | disposition home or self-care (01) ==
LOC: ERS 08:47
DX: F41.9 Anxiety disorder, unspecified (principal); I10 Essential (primary) hypertension; F32.9 Major depressive disorder, single episode, unspecified
CPT/HCPCS: 36415; 71045; 80053; 82553; 83880; 84484; 85025; 93005; 94760

== ENCOUNTER 2017-09-22 23:14 | Emergency (ER) | payer MEDICARE, MEDICAID ==
[2017-09-23] MEDS ORDERED: Acetaminophen 500 MG TAB ONE (00:46)
== END 2017-09-23 00:52 | disposition home or self-care (01) ==
LOC: ERS 23:14
DX: M25.562 Pain in left knee (principal); M25.561 Pain in right knee; I10 Essential (primary) hypertension; Z79.899 Other long term (current) drug therapy; Z79.82 Long term (current) use of aspirin
CPT/HCPCS: 99283

== ENCOUNTER 2017-10-19 10:34 | Emergency (ER) | payer MEDICARE, MEDICAID ==
[2017-10-19 11:29] LABS: Hemoglobin 13.1 g/dL (12.0-16.0); Mean Corpuscular HGB CONC 34.5 g/dL (32.0-36.0); Mean Corpuscular Hemoglobin 29.8 pg (27.0-31.0); Mean Corpuscular Volume 86.6 fL (78.0-98.0); Mean Platelet Volume 7.8 fL (7.4-10.4); Platelet Count 211 thou/uL (130-400); White Blood Cell (WBC) Count 16.2 thou/uL (4.8-10.8)
[2017-10-19 11:44] LABS: Bilirubin Negative (Negative); Blood, Urine Negative (Negative); Clarity CLOUDY (Clear); Glucose, Urine (Dipstick) Negative (Negative); Leukocyte Negative (Negative); Nitrite Negative (Negative); Protein, Urine (Dipstick) Negative (Neg-Trace); Specific Gravity, Urine 1.017 (1.002-1.036); pH, Urine 5.5 (5.0-9.0)
[2017-10-19 11:48] LABS: ALT (SGPT) 33 U/L (8-55); AST (SGOT) 20 U/L (5-34); Albumin 3.8 g/dL (3.4-4.8); Alkaline Phosphatase 124 U/L (40-150); Anion Gap 12 mmol/L (10-20); BUN (Urea Nitrogen) 14 mg/dL (9.8-20.1); Bilirubin, Total 0.8 mg/dL (0.2-1.2); Calc. Creatinine Clearance 0 mL/min (70-130); Calcium 8.9 mg/dL (7.8-10.44); Carbon Dioxide 25 mmol/L (23-31); Chloride 108 mmol/L (98-107); Estimated GFR-MDRD 52; Globulin 2.8 g/dL (2.4-3.5); Glucose 115 mg/dL (80-115); Potassium 3.1 mmol/L (3.5-5.1); Protein, Total 6.6 g/dL (6.0-8.3); Sodium 142 mmol/L (136-145)
[2017-10-19 11:51] LABS: CKMB 1.2 ng/mL (0-6.6); Troponin I Less than 0.010 ng/mL (< 0.028)
[2017-10-19 11:53] LABS: Band 2 % (5-11); Eosinophils 2 % (0-10); Lymphocytes 56 % (21-51); MDiff Complete? YES; Monocytes 5 % (0-10); Neutrophil 33 % (42-75); RBC Morphology Normal
[2017-10-19] MEDS ORDERED: Acetaminophen 500 MG TAB ONE (13:21)
--- NOTE | 2017-11-03 16:02 | EKG ---
Test Reason : Blood Pressure : / mmHG Vent. Rate : 082 BPM Atrial Rate : 082 BPM P-R Int : 134 ms QRS Dur : 076 ms QT Int : 368 ms P-R-T Axes : 051 -06 112 degrees QTc Int : 429 ms Normal sinus rhythm Possible Left atrial enlargement Left ventricular hypertrophy T wave abnormality, consider lateral ischemia Abnormal ECG Confirmed by RAFAEL MOONEY, VALENTÍN ([id number]), food expeditor SKY LANGSTON ([id number]) on 11/03/2017 4:02:11 PM Referred By: Confirmed By:VALENTÍN HALL MD
== END 2017-10-19 15:33 | disposition home or self-care (01) ==
LOC: ERS 10:34
DX: R55 Syncope and collapse (principal); I10 Essential (primary) hypertension; Z79.899 Other long term (current) drug therapy
CPT/HCPCS: 36415; 80053; 81003; 82553; 84484; 85025; 93005

== ENCOUNTER 2018-05-23 10:52 | Emergency (ER) | payer MEDICARE, MEDICAID ==
[2018-05-23] MEDS ORDERED: Ondansetron PF 4 MG/2 ML Vial ONE (11:47)
[2018-05-23] MEDS ORDERED: Morphine 4 MG/ML VIAL ONE (11:47)
[2018-05-23 11:50] LABS: Hemoglobin 13.2 g/dL (12.0-16.0); Mean Corpuscular HGB CONC 32.4 g/dL (32.0-36.0); Mean Corpuscular Volume 86.4 fL (78.0-98.0); Platelet Count 208 thou/uL (130-400); RBC Distribution Width 15.2 % (11.5-14.5); White Blood Cell (WBC) Count 20.7 thou/uL (4.8-10.8)
[2018-05-23] MEDS ORDERED: Morphine 2 MG/ML SYRINGE ONE (11:54)
[2018-05-23 12:05] LABS: ALT (SGPT) 31 U/L (8-55); AST (SGOT) 19 U/L (5-34); Albumin 3.9 g/dL (3.4-4.8); Alkaline Phosphatase 127 U/L (40-150); Anion Gap 11 mmol/L (10-20); BUN (Urea Nitrogen) 13 mg/dL (9.8-20.1); Bilirubin, Total 0.8 mg/dL (0.2-1.2); Calc. Creatinine Clearance 0 mL/min (70-130); Calcium 9.1 mg/dL (7.8-10.44); Carbon Dioxide 29 mmol/L (23-31); Chloride 107 mmol/L (98-107); Estimated GFR-MDRD 57; Globulin 2.4 g/dL (2.4-3.5); Glucose 99 mg/dL (80-115); Lipase 19 U/L (8-78); Potassium 3.9 mmol/L (3.5-5.1); Protein, Total 6.3 g/dL (6.0-8.3); Sodium 143 mmol/L (136-145)
[2018-05-23 12:07] LABS: Anisocytosis SLIGHT = 6-15 cells (100X) (0-5/hpf); Band 1 % (5-11); Lymphocytes 86 % (21-51); MDiff Complete? YES; Monocytes 5 % (0-10); Myelocyte 1 % (0-0); Neutrophil 7 % (42-75); Platelet Morphology Comment Appears Adequate
[2018-05-23 12:31] LABS: Bilirubin Negative (Negative); Blood, Urine Negative (Negative); Clarity CLEAR (Clear); Glucose, Urine (Dipstick) Negative (Negative); Leukocyte Negative (Negative); Nitrite Negative (Negative); Protein, Urine (Dipstick) Negative (Neg-Trace); Specific Gravity, Urine 1.008 (1.002-1.036)
--- NOTE | 2018-05-23 14:03 | CT ---
CT OF THE ABDOMEN AND PELVIS WITH IV CONTRAST: Date: 05/23/18 INDICATION: History of nausea and vomiting. COMPARISON: None. TECHNIQUE: Multiple CT images were obtained of the abdomen and pelvis following intravenous administration of IV contrast. The examination was repeated due to significant motion artifact on initial attempt. Two ax ial data sets are provided. Coronal data set from the second series was performed. FINDINGS: There is bibasilar atelectasis. No focal hepatic lesion is evident. The pancreas and adrenal glands appear within normal limits. Ther e are small cysts involving both kidneys. There are endovascular stents within the renal arteries anayeli aterally. Visualized spleen is unremarkable appearing. No free fluid is evident. There is a normal appendix in the right lower quadrant. There is a mild ti unt of retained stool within the colon. The bladder, rectum, and perirectal soft tissues are unremark able. There is scattered diverticula involving the colon without evidence of active diverticulitis. S mall bowel is of normal caliber. No drainable fluid collection is evident. There is a small cystic-type abnormality involving the righ t adnexa measuring 1.3 cm. There is scattered degenerative and osteoarthritic change. No definite acute osseous abnormality is e vident. IMPRESSION: 1. There is a 1.3 cm cystic abnormality within the right adnexa that may reflect a serous inclusion cyst. A nonemergent follow-up pelvic ultrasound is recommended. 2. Colonic diverticulosis without evidence of active diverticulitis. 3. Small hiatal hernia. 4. Bilateral renal cysts. POS: [facility]
[2018-05-23] MEDS ORDERED: ISOVUE-370 76%-LOCM 1 ML ONE (16:30)
== END 2018-05-23 14:25 | disposition home or self-care (01) ==
LOC: ERS 10:52
DX: R11.2 Nausea with vomiting, unspecified (principal); D72.829 Elevated white blood cell count, unspecified; Z86.73 Personal history of transient ischemic attack (TIA), and cerebral infarction without residual deficits; I10 Essential (primary) hypertension; Z79.82 Long term (current) use of aspirin; Z79.899 Other long term (current) drug therapy
CPT/HCPCS: 36415; 74177; 80053; 81003; 83605; 83690; 84484; 85025; 93005; 96374; 96375; J2270; J2405; Q9966

== ENCOUNTER 2019-02-04 14:25 | Observation (INO) | payer MEDICARE, MEDICAID ==
[2019-02-04] MEDS ORDERED: Ondansetron PF 4 MG/2 ML Vial ONE (15:16)
--- NOTE | 2019-02-04 15:56 | RAD ---
PORTABLE UPRIGHT FRONTAL CHEST RADIOGRAPH: 02/04/19 at 3:32 p.m. COMPARISON: 02/04/19 at 10:53 a.m. HISTORY: Chest pain. FINDINGS: Mild prominence of the descending thoracic aorta noted. Cardiac silhouette is mildly prominent as wel l. No pneumothorax or pleural fluid. No focal consolidation or alveolar edema. IMPRESSION: No focal consolidation or alveolar edema. POS: [facility]
[2019-02-04 16:22] LABS: Hemoglobin 12.8 g/dL (12.0-16.0); Mean Corpuscular HGB CONC 33.7 g/dL (32.0-36.0); Mean Corpuscular Hemoglobin 28.7 pg (27.0-31.0); Mean Corpuscular Volume 85.2 fL (78.0-98.0); Mean Platelet Volume 8.4 fL (7.4-10.4); Platelet Count 197 thou/uL (130-400); RBC Distribution Width 15.7 % (11.5-14.5); Red Blood Cell (RBC) Count 4.48 mill/uL (4.20-5.40); White Blood Cell (WBC) Count 25.4 thou/uL (4.8-10.8)
[2019-02-04] MEDS ORDERED: Furosemide 40 MG/4 ML VIAL ONE (16:22)
[2019-02-04 16:29] LABS: PTT 25.2 SEC (22.9-36.1); Prothrombin Time 13.4 SEC (12.0-14.7)
[2019-02-04 16:43] LABS: ALT (SGPT) 41 U/L (8-55); AST (SGOT) 23 U/L (5-34); Albumin 3.9 g/dL (3.4-4.8); Alkaline Phosphatase 167 U/L (40-110); Anion Gap 12 mmol/L (10-20); BUN (Urea Nitrogen) 13 mg/dL (9.8-20.1); Bilirubin, Total 0.9 mg/dL (0.2-1.2); Calc. Creatinine Clearance 0 mL/min (70-130); Calcium 8.7 mg/dL (7.8-10.44); Carbon Dioxide 27 mmol/L (23-31); Chloride 108 mmol/L (98-107); Estimated GFR-MDRD 60; Globulin 2.4 g/dL (2.4-3.5); Glucose 139 mg/dL (80-115); Potassium 3.1 mmol/L (3.5-5.1); Protein, Total 6.3 g/dL (6.0-8.3); Sodium 144 mmol/L (136-145)
[2019-02-04] MEDS ORDERED: Senokot S 8.6-50 MG TAB PO PRN (16:46)
[2019-02-04] MEDS ORDERED: Acetaminophen 325 MG TAB PO PRN (16:46)
[2019-02-04 16:49] LABS: Band 3 % (5-11); Eosinophils 2 % (0-10); Lymphocytes 6 % (21-51); MDiff Complete? YES; Monocytes 4 % (0-10); Neutrophil 17 % (42-75); Platelet Morphology Comment Appears Adequate; Polychromasia SLIGHT = 2-3 cells (100X) (0-2/hpf); Reactive Lymphocytes 66 % (0-10); Reflex for Review?? NO; Target Cells SLIGHT = 2-5 cells (100X) (0-1/hpf); Tear Drops SLIGHT = 2-5 cells (100X) (0-1/hpf)
[2019-02-04] MEDS ORDERED: Carvedilol 25 MG TAB PO SCH (18:00)
[2019-02-04] MEDS ORDERED: Amlodipine 10 MG TAB PO SCH (18:00)
[2019-02-04] MEDS ORDERED: Morphine 2 MG/ML SYRINGE SLOW IVP PRN (18:01)
[2019-02-04] MEDS ORDERED: Nitroglycerin 0.4 MG TAB (25 Tab Bottle) SL PRN (18:02)
[2019-02-04] MEDS ORDERED: hydrALAZINE 20 MG/ML VIAL SLOW IVP PRN (19:39)
[2019-02-04 20:47] LABS: Troponin I Less than 0.010 ng/mL (< 0.028)
[2019-02-04] MEDS ORDERED: Losartan 25 MG TAB PO SCH (21:00)
[2019-02-04] MEDS ORDERED: Atorvastatin Calcium 40 MG TAB PO SCH (21:00)
[2019-02-04 23:00] VITALS: BMI 33.1
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
[2019-02-05 05:39] LABS: Troponin I 0.015 ng/mL (< 0.028)
[2019-02-05 05:48] LABS: Anion Gap 12 mmol/L (10-20); BUN (Urea Nitrogen) 15 mg/dL (9.8-20.1); Calc. Creatinine Clearance 76 mL/min (70-130); Calcium 8.9 mg/dL (7.8-10.44); Carbon Dioxide 28 mmol/L (23-31); Chloride 107 mmol/L (98-107); Estimated GFR-MDRD 56; Glucose 102 mg/dL (80-115); Sodium 144 mmol/L (136-145)
[2019-02-05 06:30] LABS: Anisocytosis SLIGHT = 6-15 cells (100X) (0-5/hpf); Band 2 % (5-11); Eosinophils 2 % (0-10); Hemoglobin 12.7 g/dL (12.0-16.0); Lymphocytes 73 % (21-51); MDiff Complete? YES; Mean Corpuscular HGB CONC 33.9 g/dL (32.0-36.0); Mean Corpuscular Hemoglobin 28.9 pg (27.0-31.0); Mean Corpuscular Volume 85.2 fL (78.0-98.0); Mean Platelet Volume 9.4 fL (7.4-10.4); Monocytes 3 % (0-10); Neutrophil 20 % (42-75); Platelet Count 211 thou/uL (130-400); RBC Distribution Width 16.2 % (11.5-14.5); White Blood Cell (WBC) Count 28.1 thou/uL (4.8-10.8)
[2019-02-05] MEDS ORDERED: Potassium Chloride 20 MEQ TAB PO SCH (07:30)
[2019-02-05] MEDS ORDERED: Carvedilol 25 MG TAB PO SCH ×2 (08:00→09:00)
[2019-02-05 08:03] VITALS: BP 136/73; TEMP 98.4
[2019-02-05] MEDS ORDERED: Amlodipine 10 MG TAB PO SCH (09:00)
[2019-02-05] MEDS ORDERED: Enoxaparin Sodium 40 MG/0.4 ML SYRINGE SC SCH (09:00)
[2019-02-05] MEDS ORDERED: Losartan 25 MG TAB PO SCH (09:00)
[2019-02-05] MEDS ORDERED: Spironolactone 25 MG TAB PO SCH (09:00)
[2019-02-05] MEDS ORDERED: Aspirin 325 mg Enteric Coated Tablet PO SCH (09:00)
[2019-02-05] MEDS ORDERED: Clopidogrel Bisulfate 75 MG TAB PO SCH (09:00)
--- NOTE | 2019-02-05 13:09 | DIS ---
DATE OF ADMISSION: 02/04/2019 DATE OF DISCHARGE: 02/05/2019 DISCHARGE DIAGNOSES: 1. Shortness of breath with flash pulmonary edema. 2. Chest pain. 3. History of hypertension. 4. Hypertension emergency. HOSPITAL COURSE: The patient is a 64-year-old female, who initially presented to the hospital with complaints of shortness of breath and chest pain. The patient was found to be very hypertensive and went into flash pulmonary edema. She was given IV Lasix and also her blood pressure was controlled with nitroglycerin. She was transitioned off the nitroglycerin drip and she has been restarted with her blood pressure medications. The patient states that she has been under a lot of stress and she feels that this could be related to that. She has been compliant with her blood pressure medication and actually her pesticide use medical coordinator and primary care doctor has decreased her blood pressure medications. The patient recently had a cardiac cath done about 6 to 9 months ago, which I do not have the reading off and she had a stent placed. She is currently on Plavix. Her troponins x3 were negative. Her BNP was 106. EKG, no acute major changes. Her potassium was low, which have replaced. PHYSICAL EXAMINATION: VITAL SIGNS: Temperature of 98.4, pulse rate 67, blood pressure 136/73, and oxygen saturation 98% on room air. GENERAL: She is awake, alert, and oriented x3. Does not appear in distress. CV: S1 and S2 present. No murmurs, rubs, or gallops. ABDOMEN: Soft and nontender. Bowel sounds are present x2. MEDICATIONS: Her medications are as of the following; 1. She is going to continue her amlodipine 10 mg daily. 2. Carvedilol 25 mg b.i.d. 3. Atorvastatin 40 mg daily. 4. She is on Plavix 75 mg daily. 5. Cozaar, I have added back 25 mg daily. I have told her to take that in the afternoon. 6. Spironolactone 25 mg b.i.d. for now. Actually I will change the spironolactone to 25 mg daily. Job ID: [id number]
== END 2019-02-05 11:13 | disposition home or self-care (01) ==
LOC: ERS 14:25 → INTOOBSV 22:11 → 2SW 22:11
PROVIDERS: ADMIT Internal Medicine; ATTEND Internal Medicine
DX: I16.0 Hypertensive urgency (principal); I10 Essential (primary) hypertension; D72.829 Elevated white blood cell count, unspecified; J81.1 Chronic pulmonary edema; I25.10 Atherosclerotic heart disease of native coronary artery without angina pectoris; Z88.2 Allergy status to sulfonamides; Z88.5 Allergy status to narcotic agent; Z88.6 Allergy status to analgesic agent; Z88.8 Allergy status to other drugs, medicaments and biological substances; Z95.5 Presence of coronary angioplasty implant and graft; Z79.02 Long term (current) use of antithrombotics/antiplatelets; Z79.899 Other long term (current) drug therapy
CPT/HCPCS: 71045; 80048; 80053; 83880; 84484 ×2; 85025 ×2; 85610; 85730; 93005; 96365; 96366; 96372; 96375; 99285; G0378 ×3; 36415; 36416; J1650; J1940; J2405

== ENCOUNTER 2019-02-23 13:42 | Emergency (ER) | payer MEDICARE, MEDICAID ==
[2019-02-23 14:51] LABS: Hemoglobin 13.5 g/dL (12.0-16.0); Mean Corpuscular HGB CONC 33.7 g/dL (32.0-36.0); Mean Corpuscular Hemoglobin 28.5 pg (27.0-31.0); Mean Corpuscular Volume 84.5 fL (78.0-98.0); Mean Platelet Volume 8.2 fL (7.4-10.4); Platelet Count 211 thou/uL (130-400); RBC Distribution Width 15.9 % (11.5-14.5); Red Blood Cell (RBC) Count 4.74 mill/uL (4.20-5.40)
[2019-02-23 15:05] LABS: Anisocytosis SLIGHT = 6-15 cells (100X) (0-5/hpf); Lymphocytes 81 % (21-51); MDiff Complete? YES; Monocytes 4 % (0-10); Neutrophil 14 % (42-75); Platelet Morphology Comment Appears Adequate; Reactive Lymphocytes 1 % (0-10)
[2019-02-23 15:10] LABS: ALT (SGPT) 38 U/L (8-55); AST (SGOT) 20 U/L (5-34); Albumin 3.9 g/dL (3.4-4.8); Alkaline Phosphatase 188 U/L (40-110); Anion Gap 12 mmol/L (10-20); BUN (Urea Nitrogen) 13 mg/dL (9.8-20.1); Bilirubin, Total 0.8 mg/dL (0.2-1.2); Calc. Creatinine Clearance 0 mL/min (70-130); Calcium 9.1 mg/dL (7.8-10.44); Carbon Dioxide 27 mmol/L (23-31); Chloride 106 mmol/L (98-107); Estimated GFR-MDRD 49; Glucose 155 mg/dL (80-115); Potassium 3.1 mmol/L (3.5-5.1); Protein, Total 6.9 g/dL (6.0-8.3); Sodium 142 mmol/L (136-145)
[2019-02-23 15:46] LABS: PTT 25.7 SEC (22.9-36.1); Prothrombin Time 12.8 SEC (12.0-14.7)
== END 2019-02-23 16:18 | disposition left against medical advice (07) ==
LOC: ERS 13:42
DX: Z53.21 Procedure and treatment not carried out due to patient leaving prior to being seen by health care provider (principal)
CPT/HCPCS: 36415; 80053; 85025; 85610; 85730

== ENCOUNTER 2021-10-06 15:45 | Inpatient (IN) | payer OTHER, MEDICAID ==
[2021-10-06 16:13] VITALS: BMI 35.2
[2021-10-06] MEDS ORDERED: Acetaminophen 500 MG TAB PO PRN (18:15)
[2021-10-06] MEDS ORDERED: hydrALAZINE 20 MG/ML VIAL SLOW IVP PRN (18:15)
[2021-10-06] MEDS ORDERED: Labetalol HCl 100 MG/20 ML VIAL SLOW IVP PRN (18:15)
[2021-10-06] MEDS ORDERED: Ondansetron ODT 4 MG TAB PO PRN (18:15)
[2021-10-06] MEDS ORDERED: Ondansetron PF 4 MG/2 ML Vial IVP PRN (18:15)
[2021-10-06] MEDS: Atorvastatin Calcium 40 MG TAB PO SCH (20:36)
[2021-10-06] MEDS: Famotidine 20 MG TAB PO SCH (20:36)
[2021-10-07 05:42] LABS: Anion Gap 13 mmol/L (10-20); BUN (Urea Nitrogen) 19 mg/dL (9.8-20.1); Calc. Creatinine Clearance 59 mL/min (70-130); Calcium 9.3 mg/dL (7.8-10.44); Carbon Dioxide 24 mmol/L (23-31); Cardiac Risk 7.9 (Less than 4.5); Chloride 108 mmol/L (98-107); Cholesterol 212 mg/dl (< 200 Desired); Estimated GFR 36; Glucose 100 mg/dL (80-115); HDL Cholesterol 27 mg/dL (>60 Neg Risk); LDL Cholesterol, Calculated 163 mg/dL; Sodium 141 mmol/L (136-145); Triglycerides 109 mg/dL (Less than 150)
[2021-10-07 05:56] LABS: Band 1 % (5-11); Eosinophils 1 % (0-10); Hemoglobin 12.9 g/dL (12.0-16.0); Lymphocytes 65 % (21-51); MDiff Complete? YES; Mean Corpuscular HGB CONC 33.4 g/dL (32.0-36.0); Mean Corpuscular Hemoglobin 28.9 pg (27.0-31.0); Mean Corpuscular Volume 86.5 fL (78.0-98.0); Mean Platelet Volume 9.4 fL (7.4-10.4); Monocytes 3 % (0-10); Neutrophil 30 % (42-75); Platelet Count 118 thou/uL (130-400); Platelet Morphology Comment Appears Decreased; RBC Distribution Width 17.3 % (11.5-14.5); RBC Morphology Normal; Red Blood Cell (RBC) Count 4.46 mill/uL (4.20-5.40)
[2021-10-07] MEDS: Aspirin 81 mg Enteric Coated Tablet PO SCH (09:02)
[2021-10-07] MEDS: Carvedilol 25 MG TAB PO SCH (09:02)
[2021-10-07] MEDS: Amlodipine 10 MG TAB PO SCH (09:02)
[2021-10-07] MEDS: Clopidogrel Bisulfate 75 MG TAB PO SCH (09:02)
[2021-10-07] MEDS: Losartan 25 MG TAB PO SCH (09:02)
[2021-10-07] MEDS: Spironolactone 25 MG TAB PO SCH (09:02)
[2021-10-07] MEDS: Atorvastatin Calcium 40 MG TAB PO SCH (20:29)
[2021-10-07] MEDS: Famotidine 20 MG TAB PO SCH (20:29)
[2021-10-08] MEDS: Amlodipine 10 MG TAB PO SCH (09:02)
[2021-10-08] MEDS: Spironolactone 25 MG TAB PO SCH (09:02)
[2021-10-08] MEDS: Carvedilol 25 MG TAB PO SCH (09:02)
[2021-10-08] MEDS: Aspirin 81 mg Enteric Coated Tablet PO SCH (09:02)
[2021-10-08] MEDS: Clopidogrel Bisulfate 75 MG TAB PO SCH (09:02)
[2021-10-08] MEDS: Losartan 25 MG TAB PO SCH (09:03)
[2021-10-08 11:46] VITALS: TEMP 98.1
[2021-10-08 16:08] VITALS: BP 143/93
== END 2021-10-08 16:45 | disposition home health service (06) | DRG 65 ==
LOC: NEURO 15:45 → OBSVTOIN 10-07 15:18
PROVIDERS: ADMIT Internal Medicine; ATTEND Internal Medicine
DX: I63.9 Cerebral infarction, unspecified (principal); R29.703 NIHSS score 3; Z20.822 Contact with and (suspected) exposure to COVID-19; G81.91 Hemiplegia, unspecified affecting right dominant side; C91.10 Chronic lymphocytic leukemia of B-cell type not having achieved remission; I67.4 Hypertensive encephalopathy; I25.10 Atherosclerotic heart disease of native coronary artery without angina pectoris; I16.0 Hypertensive urgency; R47.81 Slurred speech; N18.30 Chronic kidney disease, stage 3 unspecified; I12.9 Hypertensive chronic kidney disease with stage 1 through stage 4 chronic kidney disease, or unspecified chronic kidney disease; R29.810 Facial weakness; Z86.73 Personal history of transient ischemic attack (TIA), and cerebral infarction without residual deficits; Z95.5 Presence of coronary angioplasty implant and graft; Z95.828 Presence of other vascular implants and grafts; Z90.710 Acquired absence of both cervix and uterus; Z86.011 Personal history of benign neoplasm of the brain; Z90.89 Acquired absence of other organs; Z98.890 Other specified postprocedural states; Z79.899 Other long term (current) drug therapy; Z79.02 Long term (current) use of antithrombotics/antiplatelets; Z82.49 Family history of ischemic heart disease and other diseases of the circulatory system; Z88.6 Allergy status to analgesic agent; Z88.5 Allergy status to narcotic agent; Z88.2 Allergy status to sulfonamides
CPT/HCPCS: 36415; 36416; 70551; 80048; 80061; 85025; 93306; G0378; U0003; U0005

== ENCOUNTER 2022-01-29 04:23 | Emergency (ER) | payer OTHER, MEDICAID | END 2022-01-29 05:55 | disposition home or self-care (01) | LOC: ERS 04:23 | DX: M79.604 Pain in right leg (principal); I10 Essential (primary) hypertension ==

== ENCOUNTER 2022-05-11 02:22 | Emergency (ER) | payer MEDICAID, MEDICARE, OTHER ==
[2022-05-11] MEDS ORDERED: cloNIDine 0.1 MG TAB ONE (02:58)
[2022-05-11 03:30] LABS: Hemoglobin 9.7 g/dL (12.0-16.0); Mean Corpuscular Hemoglobin 30.2 pg (27.0-31.0); Mean Corpuscular Volume 91.4 fl (78.0-98.0); RBC Distribution Width 17.9 % (11.5-14.5); Red Blood Cell (RBC) Count 3.21 mill/uL (4.20-5.40); White Blood Cell (WBC) Count 42.7 10x3/uL (4.8-10.8)
[2022-05-11 03:44] LABS: ALT (SGPT) 17 U/L (8-55); AST (SGOT) 23 U/L (5-34); Albumin 3.9 g/dL (3.4-4.8); Alkaline Phosphatase 121 U/L (40-110); Anion Gap 14 mmol/L (10-20); BUN (Urea Nitrogen) 20 mg/dL (9.8-20.1); Bilirubin, Total 1.1 mg/dL (0.2-1.2); CK (CPK) 90 U/L (29-168); Calc. Creatinine Clearance 0 mL/min (70-130); Calcium 9.2 mg/dL (7.8-10.44); Carbon Dioxide 22 mmol/L (23-31); Chloride 111 mmol/L (98-107); Estimated GFR 30; Globulin 2.2 g/dL (2.4-3.5); Glucose 113 mg/dL (80-115); Protein, Total 6.1 g/dL (5.8-8.1); Sodium 143 mmol/L (136-145)
[2022-05-11 03:59] LABS: Anisocytosis SLIGHT = 6-15 cells (100X) (0-5/hpf); Eosinophils 1 % (0-10); Lymphocytes 89 % (21-51); MDiff Complete? YES; Mean Platelet Volume 10.7 fL (7.4-10.4); Metamyelocyte 1 % (0-0); Monocytes 1 % (0-10); Neutrophil 8 % (42-75); Nucleated RBC 1 % (0); Platelet Count 82 10x3/uL (130-400); Platelet Morphology Comment Appears Decreased; Polychromasia SLIGHT = 2-3 cells (100X) (0-2/hpf); Reflex for Review?? YES; Tear Drops SLIGHT = 2-5 cells (100X) (0-1/hpf)
== END 2022-05-11 04:30 | disposition home or self-care (01) ==
LOC: ERS 02:22
DX: I16.0 Hypertensive urgency (principal); D72.829 Elevated white blood cell count, unspecified
CPT/HCPCS: 36415; 71045; 80053; 82550; 83880; 84484; 85025; 85060; 93005